=== PATIENT | female | born 1985 | race Caucasian/White ===

== ENCOUNTER 2018-09-17 00:59 | Inpatient (IN) | payer OTHER, MEDICAID ==
[2018-09-17] MEDS ORDERED: CARBOPROST 250 MCG INJ IM ×3 (01:30→11:00)
[2018-09-17] MEDS ORDERED: MISOPROSTOL 200 MCG TAB PR ×3 (01:30→11:00)
[2018-09-17] MEDS ORDERED: METHYLERGONOVINE 0.2 MG INJ IM ×3 (01:30→11:00)
[2018-09-17] MEDS ORDERED: OXYTOCIN 30 UNITS/LR 500 ML IV ×5 (01:30→11:00)
[2018-09-17] MEDS ORDERED: TERBUTALINE 1 ML (01:33)
[2018-09-17] MEDS: TERBUTALINE 1 MG/ML INJ SC (01:36)
[2018-09-17 01:52] LABS: ADD MAN DIFF? NO
[2018-09-17 01:59] LABS: BASOPHILS % 0.2 % (0.0-2.0); EOSINOPHILS # 0.1 10^3/ul (0.0-0.5); EOSINOPHILS % 0.6 % (0.0-7.0); HEMATOCRIT 31.6 % (37.0-47.0); HEMOGLOBIN 10.3 g/dl (12.0-16.0); LYMPHOCYTES # 3.3 10^3/ul (0.8-2.9); LYMPHOCYTES % 26.9 % (15.0-51.0); MEAN CORPUSCULAR HEMOGLOBIN 27.6 pg (29.0-33.0); MEAN CORPUSCULAR HGB CONC 32.6 g/dl (32.0-37.0); MEAN CORPUSCULAR VOLUME 84.7 fl (82.0-101.0); MEAN PLATELET VOLUME 11.2 fl (7.4-10.4); MONOCYTE # 0.6 10^3/ul (0.3-0.9); MONOCYTES % 5.1 % (0.0-11.0); NEUTROPHIL # 8.1 10^3/ul (1.6-7.5); NEUTROPHILS % 66.5 % (39.0-77.0); PLATELET COUNT 216 10^3/UL (140-415); RED BLOOD COUNT 3.73 10^6/ul (4.20-5.40); RED CELL DISTRIBUTION WIDTH 14.6 % (11.5-14.5)
[2018-09-17 01:59] LABS: WHITE BLOOD COUNT 12.3 10^3/ul (4.8-10.8)
[2018-09-17 02:18] LABS: INR 0.91; PROTIME 12.4 Sec (11.9-14.9)
[2018-09-17 02:19] LABS: PARTIAL THROMBOPLASTIN TIME 30.5 Sec (23.0-35.0)
[2018-09-17 02:19] LABS: RUPTURE FETAL MEMBRANES POSITIVE (NEGATIVE)
[2018-09-17] MEDS: CITRIC ACID/NA CITRATE 30 ML CUP PO (02:20)
[2018-09-17] MEDS: LACTATED RINGER'S 1,000 ML IV ×2 (02:21→21:51)
[2018-09-17] MEDS ORDERED: METOCLOPRAMIDE 10 MG INJ (02:23)
[2018-09-17] MEDS ORDERED: KETOROLAC 30 MG INJ (02:23)
[2018-09-17] MEDS ORDERED: ONDANSETRON 4 MG INJ (02:23)
[2018-09-17] MEDS ORDERED: morphine SULFATE/PF (10 MG/10 ML) INJ (02:23)
[2018-09-17] MEDS: OXYTOCIN 30 UNITS/LR 500 ML IV ×3 (02:51→12:06)
[2018-09-17] MEDS ORDERED: NACL 0.9% 3 ML SYG IV (03:00)
[2018-09-17] MEDS: CEFAZOLIN 2 GM/50 ML (PMX) 50 ML IVPB (03:34)
[2018-09-17 03:54] LABS: HEPATITIS B SURFACE ANTIGEN NEGATIVE (NEGATIVE)
[2018-09-17 03:57] LABS: AMPHETAMINE/METHAMPHETAMINE Negative (NEGATIVE); BARBITURATES Negative (NEGATIVE); BENZODIAZEPINES Negative (NEGATIVE); CANNABINOIDS Negative (NEGATIVE); COCAINE Negative (NEGATIVE); OPIATES Positive (NEGATIVE)
[2018-09-17] MEDS ORDERED: NALOXONE (0.4 MG/ML) INJ IV (04:00)
[2018-09-17] MEDS ORDERED: DIPHENHYDRAMINE 50 MG INJ IV (04:00)
[2018-09-17] MEDS ORDERED: ONDANSETRON 4 MG INJ IV ×2 (04:00)
[2018-09-17] MEDS ORDERED: KETOROLAC 30 MG INJ IV (04:00)
[2018-09-17] MEDS ORDERED: morphine 2 MG INJ IV ×6 (04:00)
[2018-09-17 04:04] LABS: HIV 1&2 ANTIBODY NEGATIVE (NEGATIVE)
[2018-09-17] MEDS: IBUPROFEN 800 MG TAB PO (06:00)
[2018-09-17] MEDS: KETOROLAC 30 MG INJ IV ×3 (08:05→21:48)
[2018-09-17 10:33] LABS: ADD MAN DIFF? NO
[2018-09-17 10:41] LABS: BASOPHILS % 0.1 % (0.0-2.0); EOSINOPHILS % 0.1 % (0.0-7.0); HEMOGLOBIN 8.2 g/dl (12.0-16.0); LYMPHOCYTES # 1.8 10^3/ul (0.8-2.9); LYMPHOCYTES % 15.2 % (15.0-51.0); MEAN CORPUSCULAR HEMOGLOBIN 27.1 pg (29.0-33.0); MEAN CORPUSCULAR HGB CONC 31.5 g/dl (32.0-37.0); MEAN CORPUSCULAR VOLUME 85.8 fl (82.0-101.0); MONOCYTE # 0.6 10^3/ul (0.3-0.9); MONOCYTES % 5.4 % (0.0-11.0); NEUTROPHIL # 9.3 10^3/ul (1.6-7.5); NEUTROPHILS % 78.8 % (39.0-77.0); PLATELET COUNT 179 10^3/UL (140-415); RED BLOOD COUNT 3.03 10^6/ul (4.20-5.40); RED CELL DISTRIBUTION WIDTH 14.7 % (11.5-14.5)
[2018-09-17 10:41] LABS: WHITE BLOOD COUNT 11.8 10^3/ul (4.8-10.8)
[2018-09-17] MEDS ORDERED: NA PHOSPHATE/BIPHOS 133 ML ENEMA PR (11:00)
[2018-09-17] MEDS ORDERED: LANOLIN HPA 1 PKT TOP (11:00)
[2018-09-17] MEDS ORDERED: METHYLERGONOVINE 0.2 MG TAB PO (11:00)
[2018-09-17] MEDS: DIPHENHYDRAMINE 50 MG INJ IV (15:26)
[2018-09-17 16:15] LABS: RAPID PLASMA REAGIN NONREACTIVE (NR)
[2018-09-17] MEDS: SENNA/DOCUSATE NA (8.6MG/50MG) TAB PO (21:40)
[2018-09-18] MEDS ORDERED: HYDROCODONE/APAP (5/325) TAB PO (04:56)
[2018-09-18] MEDS: HYDROCODONE/APAP (5/325) TAB PO (05:24)
[2018-09-18 06:23] LABS: ADD MAN DIFF? NO
[2018-09-18 06:25] LABS: WHITE BLOOD COUNT 12.3 10^3/ul (4.8-10.8)
[2018-09-18 06:25] LABS: BASOPHILS % 0.2 % (0.0-2.0); EOSINOPHILS # 0.1 10^3/ul (0.0-0.5); EOSINOPHILS % 0.5 % (0.0-7.0); HEMATOCRIT 29.2 % (37.0-47.0); HEMOGLOBIN 9.4 g/dl (12.0-16.0); LYMPHOCYTES # 2.2 10^3/ul (0.8-2.9); LYMPHOCYTES % 17.8 % (15.0-51.0); MEAN CORPUSCULAR HEMOGLOBIN 27.6 pg (29.0-33.0); MEAN CORPUSCULAR HGB CONC 32.2 g/dl (32.0-37.0); MEAN CORPUSCULAR VOLUME 85.6 fl (82.0-101.0); MEAN PLATELET VOLUME 11.6 fl (7.4-10.4); MONOCYTE # 0.7 10^3/ul (0.3-0.9); MONOCYTES % 5.5 % (0.0-11.0); NEUTROPHIL # 9.2 10^3/ul (1.6-7.5); NEUTROPHILS % 74.9 % (39.0-77.0); PLATELET COUNT 233 10^3/UL (140-415); RED BLOOD COUNT 3.41 10^6/ul (4.20-5.40); RED CELL DISTRIBUTION WIDTH 15.1 % (11.5-14.5)
[2018-09-18] MEDS: IBUPROFEN 600 MG TAB PO ×4 (06:51→23:43)
[2018-09-18] MEDS: SENNA/DOCUSATE NA (8.6MG/50MG) TAB PO ×2 (09:39→21:04)
[2018-09-18] MEDS: FERROUS SULFATE (EC) 325 MG TAB PO (12:25)
[2018-09-19] MEDS: IBUPROFEN 600 MG TAB PO ×2 (05:23→11:30)
[2018-09-19] MEDS: FERROUS SULFATE (EC) 325 MG TAB PO (08:58)
[2018-09-19] MEDS: SENNA/DOCUSATE NA (8.6MG/50MG) TAB PO (08:58)
[2018-09-19] MEDS: DIPHTH/TET/ACEL PERTUSS (ADULT) 0.5 ML VIAL IM* (11:22)
[2018-09-19 13:41] LABS: RUBELLA ANTIBODY - IGM <20.00 AU/mL
[2018-09-19 19:17] LABS: RUBELLA ANTIBODY - IGG 2.84 index
== END 2018-09-19 17:30 | disposition home or self-care (01) | DRG 786 ==
LOC: OBT 00:59 → L-D 01:01 → OBT 01:18 → L-D 01:18 → PP1 06:11
PROVIDERS: Obstetrics & Gynecology
PROC: 10D00Z1 Extraction of Products of Conception, Low, Open Approach (ICD-10-PCS; principal; 2018-09-17)
DX: O34.211 Maternal care for low transverse scar from previous cesarean delivery (principal); O60.14X0 Preterm labor third trimester with preterm delivery third trimester, not applicable or unspecified; O99.02 Anemia complicating childbirth; D62 Acute posthemorrhagic anemia; Z3A.36 36 weeks gestation of pregnancy; Z37.0 Single live birth
CPT/HCPCS: 76815; 80307; 84112; 85025; 85610; 85730; 86592; 86703; 86762; 86850; 86900; 86901; 87086; 87340; 88307; 99464